=== PATIENT | female | born 1980 | race Caucasian/White ===

== ENCOUNTER 2018-07-19 12:55 | Emergency (ER) | payer MEDICAID, OTHER ==
[2018-07-19 12:55] VITALS: BMI 25.2
--- NOTE | 2018-07-19 13:26 | ED PDOC ---
Arrival/HPI - General Chief Complaint: Dizziness/Lightheaded Time Seen by Provider: 07/19/18 13:00 Historian: Patient - History of Present Illness Narrative History of Present Illness (Text): 07/19/18 13:43 37 year old female, with no significant past medical history, presents to the emergency department complaining of dizziness for the past 5 days. Patient states she intermittently feels like the room is spinning and her eye sight goes black. She notes secondary loss of appetite and sometimes experiences palpitations. LNMP was approximately 20 days ago. Patient denies fevers, chills, headache, chest pain, shortness of breath, dyspnea on exertion, cough, abdominal pain, nausea, vomiting, diarrhea, back pain, neck pain, or any other complaint. Time/Duration: < week Symptom Onset: Gradual Symptom Course: Unchanged Activities at Onset: Light Context: Home Past Medical History - Provider Review Nursing Documentation Reviewed: Yes - Past Medical History Past Medical History: Non-Contributing - Psychiatric Hx Substance Use: No - Past Surgical History Past Surgical History: No Previous - Surgical History Hx Section: Yes - Anesthesia Hx Anesthesia: Yes Hx Anesthesia Reactions: No Hx Malignant Hyperthermia: No - Suicidal Assessment Feels Threatened In Home Enviroment: No Family/Social History - Physician Review Nursing Documentation Reviewed: Yes Family/Social History: No Known Family HX Smoking Status: Never Smoked Hx Alcohol Use: Yes Frequency of alcohol use: Socially Hx Substance Use: No Allergies/Home Meds Allergies/Adverse Reactions: Allergies No Known Allergies Allergy (Verified 07/06/14 01:45) Review of Systems - Physician Review All systems were reviewed & negative as marked: Yes - Review of Systems Constitutional: absent: Fevers Respiratory: absent: SOB, Cough Cardiovascular: absent: Chest Pain Gastrointestinal: Appetite Changes (loss of appetite). absent: Abdominal Pain, Diarrhea, Nausea Musculoskeletal: absent: Back Pain, Neck Pain Skin: absent: Rash Neurological: Dizziness. absent: Headache Physical Exam Vital Signs Reviewed: Yes Vital Signs Temp Pulse Resp BP Pulse Ox 07/19/18 12:55 98.2 F 118 H 18 142/86 98 Temperature: Afebrile Blood Pressure: Normal Pulse: Tachycardic Respiratory Rate: Normal Appearance: Positive for: Well-Appearing, Non-Toxic, Comfortable Pain Distress: None Mental Status: Positive for: Alert and Oriented X 3 - Systems Exam Head: Present: Atraumatic, Normocephalic Pupils: Present: PERRL Extroacular Muscles: Present: EOMI Conjunctiva: Present: Normal Mouth: Present: Moist Mucous Membranes Neck: Present: Normal Range of Motion Respiratory/Chest: Present: Clear to Auscultation, Good Air Exchange. No: Respiratory Distress, Accessory Muscle Use Cardiovascular: Present: Regular Rate and Rhythm, Normal S1, S2. No: Murmurs Abdomen: Present: Other (abdomen soft). No: Tenderness, Distention, Peritoneal Signs Back: Present: Normal Inspection Upper Extremity: Present: Normal Inspection. No: Cyanosis, Edema Lower Extremity: Present: Normal Inspection. No: Edema Neurological: Present: GCS=15, CN II-XII Intact, Speech Normal, Motor Func Grossly Intact (motor strength 5/5 in upper and lower extremities ), Other (horizontal nystagmus noted) Skin: Present: Warm, Dry, Normal Color. No: Rashes Psychiatric: Present: Alert, Oriented x 3, Normal Insight, Normal Concentration Medical Decision Making ED Course and Treatment: 07/19/18 13:42 Impression: 37 year old female who presents to the emergency department complaining of dizziness. Differential Diagnosis included but are not limited to: Plan: -- EKG -- Labs -- Antivert -- Reglan -- POC urine test -- Urinalysis -- Reassess and disposition Prior Visits: Notes and results from previous visits were reviewed. Progress Notes: - Lab Interpretations I have reviewed the lab results: Yes - EKG Interpretation EKG Interpretation (Text): 07/19/18 13:52 EKG reviewed by me, shows: Sinus tachycardia at 101 bpm with no QT prolongation and no T wave inversions. Interpreted by ED Physician: Yes Type: 12 lead EKG - Scribe Statement The provider has reviewed the documentation as recorded by the Cindy Elizondo Provider Scribe Attestation: All medical record entries made by the Scribe were at my direction and personal ly dictated by me. I have reviewed the chart and agree that the record accurately reflects my personal performance of the history, physical exam, medical decision making, and the department course for this patient. I have also personally directed, reviewed, and agree with the discharge instructions and disposition. Disposition/Present on Arrival - Present on Arrival Any Indicators Present on Arrival: No History of DVT/PE: No History of Uncontrolled Diabetes: No Urinary Catheter: No History of Decub. Ulcer: No History Surgical Site Infection Following: None - Disposition Have Diagnosis and Disposition been Completed?: Yes Diagnosis: Vertigo Disposition Time: 15:59 Patient Plan: Discharge Patient Problems: Current Active Problems Problem Status Onset Vertigo Acute Condition: STABLE Discharge Instructions (ExitCare): Vertigo (a Type of Dizziness) (DC), Dizziness, Nonvertigo, (DC) Print Language: YI Additional Instructions: All medical record entries made by the Scribe were at my direction and personally dictated by me. I have reviewed the chart and agree that the record accurately reflects my personal performance of the history, physical exam, medical decision making, and the department course for this patient. I have also personally directed, reviewed, and agree with the discharge instructions and disposition. Please monitor your symptoms for any changes in symptoms Prescriptions: Meclizine [Antivert] 12.5 mg PO PRN PRN #10 tab PRN Reason: Dizziness Metoclopramide HCl [Reglan] 10 mg PO Q6H #12 tablet Forms: [employer] ([place]), WORK NOTE
[2018-07-19 14:15] LABS: PH,URINE 7.5 (4.7-8.0); URINE APPEARANCE CLEAR (CLEAR); URINE BILIRUBIN NEGATIVE (NEGATIVE); URINE BLOOD NEGATIVE (NEGATIVE); URINE COLOR YELLOW (YELLOW); URINE GLUCOSE (UA) NEGATIVE (NEGATIVE); URINE LEUKOCYTE ESTERASE NEGATIVE Leu/uL (NEGATIVE); URINE PROTEIN NEGATIVE mg/dL (<30 mg/dL); URINE UROBILINOGEN 0.2 E.U./dL (<1 E.U./dL)
[2018-07-19 14:30] LABS: BASO # 0.03 K/mm3 (0.0-2.0); BASO % 0.3 % (0.0-3.0); EOS % 0.2 % (1.5-5.0); HEMOGLOBIN 13.4 g/dL (12.0-16.0); LYMPH # 1.4 (1.2-3.4); MEAN CELL VOLUME 90.2 fl (80.0-105.0); MEAN CORPUSCULAR HEMOGLOBIN 29.3 pg (25.0-35.0); MEAN CORPUSCULAR HGB CONC 32.4 g/dl (31.0-37.0); MEAN PLATELET VOLUME 10.1 fl (7.0-11.0); MONO # 0.6 (0.1-0.6); MONO % 6.8 % (1.0-6.0); RBC 4.58 10^6/uL (3.5-6.1); RED CELL DISTRIBUTION WIDTH 13.6 % (11.5-14.5); WHITE BLOOD COUNT 8.9 10^3/uL (4.5-11.0)
[2018-07-19 14:59] LABS: ALB/GLOB RATIO 1.3 (1.1-1.8); ALBUMIN 4.9 g/dL (3.0-4.8); ALT/SGPT 44 U/L (7-56); AST/SGOT 39 U/L (14-36); BLOOD UREA NITROGEN 9 mg/dL (7-21); CALCIUM 9.9 mg/dL (8.4-10.5); GFR NON-AFRICAN AMERICAN > 60
[2018-07-19] MEDS ORDERED: Sodium Chloride 0.9% 1,000 ML IV STA (15:19)
--- NOTE | 2018-07-19 16:23 | CARD ---
APPROVED REPORT Date of service: 07/19/2018 EKG Measurement Heart [id number] <Conclusion> Sinus tachycardia Otherwise normal ECG
[2018-07-19 17:23] VITALS: BP 117/80; PULSE 81; RESP 19; TEMP 98.1; O2SAT 100
== END 2018-07-19 17:29 | disposition home or self-care (01) ==
LOC: ED 12:55 → MERGE 12:55 → ED 17:29
DX: R42 Dizziness and giddiness (principal)
CPT/HCPCS: 80053; 81003; 81025; 85025; 93005; 96360; 99285; J7030

== ENCOUNTER 2018-07-22 08:59 | Inpatient (IN) | payer MEDICAID ==
[2018-07-22] MEDS ORDERED: Sodium Chloride 0.9% 1,000 ML IV STA (09:39)
--- NOTE | 2018-07-22 09:44 | ED PDOC ---
Arrival/HPI - General Chief Complaint: Weakness/Neurological Deficit Historian: Patient - History of Present Illness Narrative History of Present Illness (Text): 07/22/18 09:41 38 year old female, no significant, pmh, nkda, complaining of feeling fatigue /dizziness with exertion of activity. Pt. stated that she was seen here about 5 days ago, diagnosed with vertigo, discharge home with meclizine with limited relief, scheduled to see pmd Dr. Emmanuelle Lima tomorrow. pt. stated that she is here because the symptoms persist and concern plus panic, arrived in the ER with tachycardia around 105s resting with negative orthostatic bp reading, no recent long distance traveling but she is on the control medication, no extremity swelling or ecchymosis, no numbness or tingling, no other medical or psychological complaints. Past Medical History - Provider Review Nursing Documentation Reviewed: Yes - Reproductive Currently : No - Past Medical History Past Medical History: Non-Contributing - Psychiatric Hx Substance Use: No - Past Surgical History Past Surgical History: No Previous - Surgical History Hx Section: Yes - Anesthesia Hx Anesthesia: Yes Hx Anesthesia Reactions: No Hx Malignant Hyperthermia: No - Suicidal Assessment Feels Threatened In Home Enviroment: No Family/Social History - Physician Review Nursing Documentation Reviewed: Yes Family/Social History: Unknown Family HX Smoking Status: Never Smoked Hx Alcohol Use: Yes Hx Substance Use: No Allergies/Home Meds Allergies/Adverse Reactions: Allergies No Known Allergies Allergy (Verified 07/06/14 01:45) Home Medications: Home Meds Medication Instructions Recorded Confirmed Control Pill 1 tab PO DAILY 07/22/18 Review of Systems - Review of Systems Constitutional: Fatigue. absent: Fevers Eyes: absent: Vision Changes ENT: absent: Hearing Changes Respiratory: absent: SOB, Cough Cardiovascular: absent: Chest Pain Gastrointestinal: absent: Abdominal Pain, Nausea, Vomiting Skin: absent: Rash, Pruritis Neurological: Dizziness. absent: Headache, Focal Weakness, Gait Changes, Speech Changes, Facial Droop, Disequilibrium, Seizure Endocrine: absent: Diaphoresis Hemo/Lymphatic: absent: Adenopathy Psychiatric: absent: Depression, Suicidal Ideation Physical Exam Vital Signs Reviewed: Yes Vital Signs Temp Pulse Resp BP Pulse Ox 07/22/18 09:00 98.4 F 108 H 18 132/85 100 Temperature: Afebrile Blood Pressure: Normal Pulse: Tachycardic Respiratory Rate: Normal Appearance: Positive for: Well-Appearing, Non-Toxic, Comfortable Pain Distress: None Mental Status: Positive for: Alert and Oriented X 3 - Systems Exam Head: Present: Atraumatic, Normocephalic. No: Tenderness, Contusion, Swelling, Ecchymosis, Abrasion, Laceration, Other Pupils: Present: PERRL Extroacular Muscles: Present: EOMI Conjunctiva: Present: Normal Mouth: Present: Moist Mucous Membranes Pharnyx: Present: Normal. No: ERYTHEMA, EXUDATE, TONSILS ENLARGED, Uvular Deviation, Muffled/Hoarse Voice, Soft Palate/Uvular Edema Nose (External): Present: Atraumatic. No: Abrasion, Contusion, Laceration Nose (Internal): Present: Normal Inspection, No Active Bleeding. No: Rhinorrhea, Septal Hematoma, Epistaxis Neck: Present: Normal Range of Motion Respiratory/Chest: Present: Clear to Auscultation, Good Air Exchange. No: Respiratory Distress, Accessory Muscle Use Cardiovascular: Present: Regular Rate and Rhythm, Normal S1, S2. No: Murmurs Abdomen: No: Tenderness, Distention, Peritoneal Signs, Rebound, Guarding Back: Present: Normal Inspection. No: CVA Tenderness, Midline Tenderness, Paraspinal Tenderness Upper Extremity: Present: Normal Inspection, Normal ROM, NORMAL PULSES, Neurovascularly Intact, Capillary Refill < 2s. No: Cyanosis, Edema, Tenderness, Swelling, Erythema, Deformity Lower Extremity: Present: Normal Inspection, NORMAL PULSES, Normal ROM, Neurovascularly Intact, Capillary Refill < 2 s. No: Edema, CALF TENDERNESS, Rodriguez's Sign, Tenderness, Swelling, Deformity, Temperature Abnormalties Neurological: Present: GCS=15, CN II-XII Intact, Speech Normal, Motor Func Grossly Intact, Normal Cerebellar Funct, Gait Normal, Memory Normal, Other (normal finger to nose test, normal heel to linda test, bilateral upper and lower extremities motor 5/5. ) Skin: Present: Warm, Dry, Normal Color. No: Rashes Lymphatic: No: Cervical Adenopathy Psychiatric: Present: Alert, Oriented x 3, Normal Insight, Normal Concentration Medical Decision Making ED Course and Treatment: 07/22/18 09:44 -labs -ekg -cxr -IVF -cardiac nurse 07/22/18 11:05 -Dimer 1336, CT ordered 07/22/18 12:08 -Urine hcg is negative -Orthostatic v/s: negative -CT head show No acute intracranial hemorrhage. -CTA Chest There is evidence of pulmonary emboli within the distal left lower lobe pulmonary artery, proximal segmental and possibly additional subsegmental left lower lobe branch. Questionable pulmonary embolus within a distal segmental branch right upper lobe -Chest xray ER wet read: no active disease -EKG: NSR @ 98 BPM, no ST elevation or depression, no T wave inversion -Labs are non-significant -BNP within normal limit -Trop within normal limit. -Urinalysis show no UTI -Pt. refused guaiac exam, stated that she has no rectal bleeding, no black color stool, no abdominal pain. -IV PT/PTT and heparin ordered. -Paging hospitalist for admission. 07/22/18 12:52 -I spoke to Dr. Sarmiento, discussed about the case/labs/radiology result, agreed to admit to his service. - RAD Interpretation Radiology Orders: 07/22/18 09:39 CHEST PORTABLE [RAD] Stat CT head: Date of service: 07/22/2018 PROCEDURE: CT HEAD WITHOUT CONTRAST. HISTORY: dizziness COMPARISON: Wet the the the TECHNIQUE: Axial computed tomography images were obtained through the head/brain without intravenous contrast. Radiation dose: Total exam DLP = 685.6 mGy-cm. This CT exam was performed using one or more of the following dose reduction techniques: Automated exposure control, adjustment of the mA and/or kV according to patient size, and/or use of iterative reconstruction technique. FINDINGS: HEMORRHAGE: No intracranial hemorrhage. BRAIN: No mass effect or edema. No atrophy or chronic microvascular ischemic changes. VENTRICLES: Unremarkable. No hydrocephalus. CALVARIUM: Unremarkable. PARANASAL SINUSES: Unremarkable as visualized. No significant inflammatory changes. MASTOID AIR CELLS: Unremarkable as visualized. No inflammatory changes. OTHER FINDINGS: None. IMPRESSION: No acute intracranial hemorrhage. CTA chest: FINDINGS: PULMONARY ARTERIES: There are filling defects seen within the distal of lower lobe pulmonary artery extending into at least 2 segmental branches and probably 1 or 2 subsegmental branches of the lower lobe of pulmonary arteries. Questionable filling defect within a distal right upper lobe segmental pulmonary artery branch. Pulmonary trunk measures approximately 2.6 cm; rule out underlying minimal pulmonary arterial hypertension.. AORTA: No acute findings. No thoracic aortic aneurysm. Ascending thoracic aorta measures approximately 2.5 cm. The no aortic atherosclerotic calcification or mural plaque present. LUNGS: Unremarkable. No nodule, mass or pulmonary consolidation. PLEURAL SPACES: Unremarkable. No effusion or pneumothorax. HEART: Heart size is borderline enlarged. No significant pericardial effusion. LYMPH NODES: No significant mediastinal or hilar adenopathy. Small hiatal hernia Trachea midline and patent with no large central endoluminal lesions. BONES, CHEST WALL: Unremarkable. No fracture or destructive lesion OTHER FINDINGS: Unremarkable. IMPRESSION: There is evidence of pulmonary emboli within the distal left lower lobe pulmonary artery, proximal segmental and possibly additional subsegmental left lower lobe branch. Questionable pulmonary embolus within a distal segmental branch right upper lobe The the Note that these findings were discussed with the LJ Padilla at approximately 11:48 a.m. with written down and read back verification. Chest xray: Date of service: 07/22/2018 HISTORY: fatigue, dizziness COMPARISON: No prior. FINDINGS: LUNGS: No active pulmonary disease. PLEURA: No significant pleural effusion identified, no pneumothorax apparent. CARDIOVASCULAR: No aortic atherosclerotic calcification present. Normal cardiac size. No pulmonary vascular congestion. OSSEOUS STRUCTURES: No significant abnormalities. VISUALIZED UPPER ABDOMEN: Normal. OTHER FINDINGS: None. IMPRESSION: No active disease. 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 Disposition/Present on Arrival - Present on Arrival Any Indicators Present on Arrival: No History of DVT/PE: No History of Uncontrolled Diabetes: No Urinary Catheter: No History of Decub. Ulcer: No History Surgical Site Infection Following: None - Disposition Have Diagnosis and Disposition been Completed?: Yes Diagnosis: Pulmonary embolism Disposition: HOSPITALIZED Disposition Time: 12:10 Patient Plan: Admission, Telemetry Patient Problems: Current Active Problems Problem Status Onset Pulmonary embolism Acute Condition: GUARDED
[2018-07-22 10:05] LABS: BASO # 0.02 K/mm3 (0.0-2.0); BASO % 0.4 % (0.0-3.0); EOS # 0.1 (0.0-0.7); EOS % 1.2 % (1.5-5.0); HEMOGLOBIN 12.8 g/dL (12.0-16.0); LYMPH # 1.1 (1.2-3.4); LYMPH % 23.2 % (22.0-35.0); MEAN CELL VOLUME 91.3 fl (80.0-105.0); MEAN CORPUSCULAR HEMOGLOBIN 29.2 pg (25.0-35.0); MONO # 0.5 (0.1-0.6); MONO % 9.3 % (1.0-6.0); RBC 4.38 10^6/uL (3.5-6.1); RED CELL DISTRIBUTION WIDTH 13.6 % (11.5-14.5); WHITE BLOOD COUNT 4.9 10^3/uL (4.5-11.0)
[2018-07-22 10:20] LABS: ALB/GLOB RATIO 1.3 (1.1-1.8); ALBUMIN 4.4 g/dL (3.0-4.8); ALT/SGPT 24 U/L (7-56); AST/SGOT 26 U/L (14-36); BLOOD UREA NITROGEN 8 mg/dL (7-21); CALCIUM 9.4 mg/dL (8.4-10.5); GFR NON-AFRICAN AMERICAN > 60
[2018-07-22 10:26] LABS: B-TYPE NATRIURETIC PEPTIDE 33.7 pg/mL (0-450); TROPONIN I < 0.01 ng/mL
[2018-07-22 10:30] LABS: FREE T4 0.97 ng/dL (0.78-2.19)
[2018-07-22 10:44] LABS: PH,URINE 6.5 (4.7-8.0); URINE APPEARANCE CLEAR (CLEAR); URINE BILIRUBIN NEGATIVE (NEGATIVE); URINE BLOOD NEGATIVE (NEGATIVE); URINE COLOR YELLOW (YELLOW); URINE GLUCOSE (UA) NEGATIVE (NEGATIVE); URINE LEUKOCYTE ESTERASE NEGATIVE Leu/uL (NEGATIVE); URINE PROTEIN NEGATIVE mg/dL (<30 mg/dL); URINE UROBILINOGEN 0.2 E.U./dL (<1 E.U./dL)
--- NOTE | 2018-07-22 11:10 | CARD ---
APPROVED REPORT Date of service: 07/22/2018 EKG Measurement Heart [id number] <Conclusion> Normal sinus rhythm Normal ECG
--- NOTE | 2018-07-22 11:34 | CT ---
Date of service: 07/22/2018 PROCEDURE: CT HEAD WITHOUT CONTRAST. HISTORY: dizziness COMPARISON: Wet the the the TECHNIQUE: Axial computed tomography images were obtained through the head/brain without intravenous contrast. Radiation dose: Total exam DLP = 685.6 mGy-cm. This CT exam was performed using one or more of the following dose reduction techniques: Automated exposure control, adjustment of the mA and/or kV according to patient size, and/or use of iterative reconstruction technique. FINDINGS: HEMORRHAGE: No intracranial hemorrhage. BRAIN: No mass effect or edema. No atrophy or chronic microvascular ischemic changes. VENTRICLES: Unremarkable. No hydrocephalus. CALVARIUM: Unremarkable. PARANASAL SINUSES: Unremarkable as visualized. No significant inflammatory changes. MASTOID AIR CELLS: Unremarkable as visualized. No inflammatory changes. OTHER FINDINGS: None. IMPRESSION: No acute intracranial hemorrhage.
[2018-07-22 11:55] VITALS: BMI 25.0
--- NOTE | 2018-07-22 11:59 | CT ---
Date of service: 07/22/2018 PROCEDURE: CT Chest with contrast (Pulmonary Angiogram) HISTORY: Tachycardia COMPARISON: None available. TECHNIQUE: Axial computed tomography images were obtained of the chest in the pulmonary arterial phase of enhancement. Coronal and sagittal reformatted images were created and reviewed. Intravenous contrast dose: 146 cc Omnipaque 350 Radiation dose: Total exam DLP = 309.92 mGy-cm. This CT exam was performed using one or more of the following dose reduction techniques: Automated exposure control, adjustment of the mA and/or kV according to patient size, and/or use of iterative reconstruction technique. FINDINGS: PULMONARY ARTERIES: There are filling defects seen within the distal of lower lobe pulmonary artery extending into at least 2 segmental branches and probably 1 or 2 subsegmental branches of the lower lobe of pulmonary arteries. Questionable filling defect within a distal right upper lobe segmental pulmonary artery branch. Pulmonary trunk measures approximately 2.6 cm; rule out underlying minimal pulmonary arterial hypertension.. AORTA: No acute findings. No thoracic aortic aneurysm. Ascending thoracic aorta measures approximately 2.5 cm. The no aortic atherosclerotic calcification or mural plaque present. LUNGS: Unremarkable. No nodule, mass or pulmonary consolidation. PLEURAL SPACES: Unremarkable. No effusion or pneumothorax. HEART: Heart size is borderline enlarged. No significant pericardial effusion. LYMPH NODES: No significant mediastinal or hilar adenopathy. Small hiatal hernia Trachea midline and patent with no large central endoluminal lesions. BONES, CHEST WALL: Unremarkable. No fracture or destructive lesion OTHER FINDINGS: Unremarkable. IMPRESSION: There is evidence of pulmonary emboli within the distal left lower lobe pulmonary artery, proximal segmental and possibly additional subsegmental left lower lobe branch. Questionable pulmonary embolus within a distal segmental branch right upper lobe The the Note that these findings were discussed with the LJ Padilla at approximately 11:48 a.m. with written down and read back verification.
[2018-07-22 12:12] LABS: INR 1.06; PARTIAL THROMBOPLASTIN TIME 31.2 Seconds (26.9-38.3)
[2018-07-22] MEDS: Heparin25000 units/250ml 1/2NS 25,000 UNITS/250 ML BAG IV PRN (12:32)
--- NOTE | 2018-07-22 12:57 | RAD ---
Date of service: 07/22/2018 HISTORY: fatigue, dizziness COMPARISON: No prior. FINDINGS: LUNGS: No active pulmonary disease. PLEURA: No significant pleural effusion identified, no pneumothorax apparent. CARDIOVASCULAR: No aortic atherosclerotic calcification present. Normal cardiac size. No pulmonary vascular congestion. OSSEOUS STRUCTURES: No significant abnormalities. VISUALIZED UPPER ABDOMEN: Normal. OTHER FINDINGS: None. IMPRESSION: No active disease.
--- NOTE | 2018-07-22 13:47 | CP.PCM.HP ---
<JoseAntno Leland - Last Filed: 07/22/18 15:01> History of Present Illness - History of Present Illness History of Present Illness: Anton Garcia PGY1, History and Physical for Dr Priyanka Ferguson Pt is a 38yo female with no significant PMH presents to the emergency department complaining of generalized weakness, and hunger which started last Monday. She states she has not eaten all day, last time she ate was last night. Pt states she presented [place] [facility] [place] for similiar symptoms. Pt states she has been taking OCP for the past 5 years. She denies a personal or family history of coagulation problems. Pt reports some mild associated SOB with the weakness. She denies chest pain, nausea, vomiting, headache. A 12 point ROS was obtained and added to the HPI where appropriate. PMH: denies PSH: x2 FH: mother no medical problems, father no medical problems SH: denies tobacco, occasional alcohol, denies illicit drugs Home meds: OCP Allergies: denies PMD: Dr Lima Present on Admission - Present on Admission Any Indicators Present on Admission: No Past Patient History - Past Social History Smoking Status: Never Smoked - PSYCHIATRIC Hx Substance Use: No - SURGICAL HISTORY Hx Section: Yes - ANESTHESIA Hx Anesthesia: Yes Hx Anesthesia Reactions: No Hx Malignant Hyperthermia: No Meds Allergies/Adverse Reactions: Allergies Allergy/AdvReac Type Severity Reaction Status Date / Time No Known Allergies Allergy Verified 07/06/14 01:45 Physical Exam - Head Exam Head Exam: ATRAUMATIC, NORMOCEPHALIC - Eye Exam Eye Exam: EOMI - ENT Exam ENT Exam: Mucous Membranes Moist - Neck Exam Neck exam: Positive for: Full Rom - Respiratory Exam Respiratory Exam: Clear to Auscultation Bilateral, NORMAL BREATHING PATTERN. absent: Accessory Muscle Use, Respiratory Distress - Cardiovascular Exam Cardiovascular Exam: RRR, +S1, +S2. absent: Diastolic murmur, Systolic Murmur - GI/Abdominal Exam GI & Abdominal Exam: Normal Bowel Sounds, Soft - Extremities Exam Extremities exam: Positive for: full ROM, normal inspection, pedal pulses present. Negative for: calf tenderness, pedal edema, tenderness - Neurological Exam Neurological exam: Alert, Oriented x3 - Psychiatric Exam Psychiatric exam: Normal Affect, Normal Mood - Skin Skin Exam: Dry, Intact, Warm Results - Vital Signs Recent Vital Signs: Last Vital Signs Temp 98.4 F 07/22/18 09:44 Pulse 93 H 07/22/18 11:59 Resp 18 07/22/18 11:59 BP 121/72 07/22/18 11:59 Pulse Ox 99 07/22/18 11:59 - Labs Result Diagrams: 07/22/18 09:55 07/22/18 09:55 Labs: Laboratory Results - last 24 hr 07/22/18 07/22/18 07/22/18 09:55 09:55 09:55 WBC 4.9 D RBC 4.38 Hgb 12.8 Hct 40.0 MCV 91.3 MCH 29.2 MCHC 32.0 RDW 13.6 Plt Count 289 MPV 10.0 Neut % (Auto) 65.9 Lymph % (Auto) 23.2 Pratt % (Auto) 9.3 H Eos % (Auto) 1.2 L Baso % (Auto) 0.4 Lymph # (Auto) 1.1 L Pratt # (Auto) 0.5 Eos # (Auto) 0.1 Baso # (Auto) 0.02 Absolute Neuts (auto) 3.24 PT INR APTT D-Dimer, Quantitative 1336 H Sodium 139 Potassium 4.1 Chloride 106 Carbon Dioxide 25 Anion Gap 13 BUN 8 Creatinine 0.6 L Est GFR ( Amer) > 60 Est GFR (Non-Af Amer) > 60 Random Glucose 102 Calcium 9.4 Magnesium 2.1 Total Bilirubin 0.3 AST 26 ALT 24 Alkaline Phosphatase 59 Total Creatine Kinase 26 L Troponin I < 0.01 NT-Pro-B Natriuret Pep 33.7 Total Protein 8.0 Albumin 4.4 Globulin 3.5 Albumin/Globulin Ratio 1.3 Free T4 TSH 3rd Generation Urine Color Urine Appearance Urine pH Ur Specific [place] Urine Protein Urine Glucose (UA) Urine Ketones Urine Blood Urine Nitrate Urine Bilirubin Urine Urobilinogen Ur Leukocyte Esterase 07/22/18 07/22/18 07/22/18 09:55 10:30 11:55 WBC RBC Hgb Hct MCV MCH MCHC RDW Plt Count MPV Neut % (Auto) Lymph % (Auto) Pratt % (Auto) Eos % (Auto) Baso % (Auto) Lymph # (Auto) Pratt # (Auto) Eos # (Auto) Baso # (Auto) Absolute Neuts (auto) PT 12.0 INR 1.06 APTT 31.2 D-Dimer, Quantitative Sodium Potassium Chloride Carbon Dioxide Anion Gap BUN Creatinine Est GFR ( Amer) Est GFR (Non-Af Amer) Random Glucose Calcium Magnesium Total Bilirubin AST ALT Alkaline Phosphatase Total Creatine Kinase Troponin I NT-Pro-B Natriuret Pep Total Protein Albumin Globulin Albumin/Globulin Ratio Free T4 0.97 TSH 3rd Generation 1.24 Urine Color Yellow Urine Appearance Clear Urine pH 6.5 Ur Specific [place] <= 1.005 Urine Protein Negative Urine Glucose (UA) Negative Urine Ketones Negative Urine Blood Negative Urine Nitrate Negative Urine Bilirubin Negative Urine Urobilinogen 0.2 Ur Leukocyte Esterase Negative Assessment & Plan - Assessment and Plan (Free Text) Assessment: Pt is a 38yo female with no significant PMH presents to the emergency department complaining of generalized weakness, and hunger which started last Monday. She states she has not eaten all day, last time she ate was last night. Pt states she presented [place] [facility] [place] for similiar symptoms. Plan: Provoked Pulmonary Embolism - therapeutic heparin drip - coag studies, follow up - CXR shows no active disease - Head CT: no acute intracranial abnormality - Chest CT: evidence of pulmonary emboli within the distal left lower lobe pulmonary artery, proximal segment and possibly additional subsegmental left lower lobe branch. - LE duplex up - ECHO follow up - pt counseled to stop taking OCP, as this may have increased her risk of having a pulmonary embolism - pt advised to follow up with a clinical safety specialist as an out pt Ppx, diet - regular diet Pt seen, examined, assessment and plan discussed with Dr Priyanka Garcia PGY1 - Date & Time Date: 07/22/18 Time: 13:52 <Priyanka Ferguson R - Last Filed: 07/22/18 16:02> Results - Vital Signs Recent Vital Signs: Last Vital Signs Temp 98.4 F 07/22/18 09:44 Pulse 90 07/22/18 15:02 Resp 18 07/22/18 15:02 BP 118/69 07/22/18 15:02 Pulse Ox 99 07/22/18 15:02 - Labs Result Diagrams: 07/22/18 09:55 07/22/18 09:55 Labs: Laboratory Results - last 24 hr 02/03/19 02/03/19 02/03/19 09:55 09:55 09:55 WBC 4.9 D RBC 4.38 Hgb 12.8 Hct 40.0 MCV 91.3 MCH 29.2 MCHC 32.0 RDW 13.6 Plt Count 289 MPV 10.0 Neut % (Auto) 65.9 Lymph % (Auto) 23.2 Pratt % (Auto) 9.3 H Eos % (Auto) 1.2 L Baso % (Auto) 0.4 Lymph # (Auto) 1.1 L Pratt # (Auto) 0.5 Eos # (Auto) 0.1 Baso # (Auto) 0.02 Absolute Neuts (auto) 3.24 PT INR APTT D-Dimer, Quantitative 1336 H Sodium 139 Potassium 4.1 Chloride 106 Carbon Dioxide 25 Anion Gap 13 BUN 8 Creatinine 0.6 L Est GFR ( Amer) > 60 Est GFR (Non-Af Amer) > 60 Random Glucose 102 Calcium 9.4 Magnesium 2.1 Total Bilirubin 0.3 AST 26 ALT 24 Alkaline Phosphatase 59 Total Creatine Kinase 26 L Troponin I < 0.01 NT-Pro-B Natriuret Pep 33.7 Total Protein 8.0 Albumin 4.4 Globulin 3.5 Albumin/Globulin Ratio 1.3 Free T4 TSH 3rd Generation Urine Color Urine Appearance Urine pH Ur Specific [place] Urine Protein Urine Glucose (UA) Urine Ketones Urine Blood Urine Nitrate Urine Bilirubin Urine Urobilinogen Ur Leukocyte Esterase 07/22/18 07/22/18 07/22/18 09:55 10:30 11:55 WBC RBC Hgb Hct MCV MCH MCHC RDW Plt Count MPV Neut % (Auto) Lymph % (Auto) Pratt % (Auto) Eos % (Auto) Baso % (Auto) Lymph # (Auto) Pratt # (Auto) Eos # (Auto) Baso # (Auto) Absolute Neuts (auto) PT 12.0 INR 1.06 APTT 31.2 D-Dimer, Quantitative Sodium Potassium Chloride Carbon Dioxide Anion Gap BUN Creatinine Est GFR ( Amer) Est GFR (Non-Af Amer) Random Glucose Calcium Magnesium Total Bilirubin AST ALT Alkaline Phosphatase Total Creatine Kinase Troponin I NT-Pro-B Natriuret Pep Total Protein Albumin Globulin Albumin/Globulin Ratio Free T4 0.97 TSH 3rd Generation 1.24 Urine Color Yellow Urine Appearance Clear Urine pH 6.5 Ur Specific [place] <= 1.005 Urine Protein Negative Urine Glucose (UA) Negative Urine Ketones Negative Urine Blood Negative Urine Nitrate Negative Urine Bilirubin Negative Urine Urobilinogen 0.2 Ur Leukocyte Esterase Negative Attending/Attestation - Attestation I have personally seen and examined this patient.: Yes I have fully participated in the care of the patient.: Yes I have reviewed all pertinent clinical information: Yes Notes (Text): Patient seen and examined by me with resident at 1:15PM on 07/22/18. Case i ncluding HPI, physical exam, and assessment and plan discussed with resident. Agree with above with following additions/corrections. CC: Weakness and dizziness. Patient is a 38-year-old female with no significant past medical history that presented to the emergency room complaining of generalized weakness and dizziness. Patient states that she has been experiencing these symptoms since 07/14/2018. She presented to emergency room on 07/19/2018 and states that she left without a diagnosis. Patient states that she also has a little shortness of breath with walking. Patient denies any recent travel. 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 Patient states that she has been taking control pills for approximately 5 years now. She denies any chest pain or palpitations. No nausea, vomiting, or abdominal pain. No fevers or chills. No dysuria. No diarrhea or constipation. No neck or back pain. No headaches or lightheadedness. Patient denies any leg or calf pain. 12 point review of systems reviewed by me. Please see above HPI. All other systems negative. Family history: Mother is alive and healthy. Father is alive and healthy. Physical exam: General: Awake and alert lying in bed in no acute distress HEENT: Normocephalic, atraumatic. Extraocular muscles intact, pupils equal and reactive, no scleral icterus. Oropharynx is pink and moist. No pharyngeal erythema or exudate apreciated. Neck is supple. Hearing grossly intact. Ears and nose externally unremarkable. Cardiovascular: Regular rhythm. Normal S1 and S2. No murmurs, rubs, or gallops appreciated Pulmonary: Normal respiratory effort. No rhonchi, rales, or wheezing appreciated. Gastrointestinal: Soft, nondistended. Nontender. Positive bowel sounds all 4 quadrants. No guarding. Musculoskeletal: Moves all extremities. No calf tenderness. No edema. Central nervous system: AAOx3, CN 2-12 grossly intact. 5/5 muscle strength all extremities. Dermatologic: Skin warm and dry. Assessment and plan: Patient is a 38-year-old female with no significant past medical history that presented to the emergency room complaining of generalized weakness and dizziness. 1. Pulmonary emboli. Likely secondary to oral contraceptive pill use. Patient advised to stop using her OCPs. CTA chest per radiologist showed evidence of pulmonary emboli within the distal left lower lobe pulmonary artery, proximal segmental and possibly additional subsegmental left lower lobe branch, questionable pulmonary embolism within the distal segmental branch right upper lobe. Started on heparin drip. Risks including increased risk of bleeding discussed at length with patient. Patient understands the risks of blood thinners and agrees to take them. Patient understands that if she plans to be in the future, she will need to speak to her physician prior as she is on blood thinners. Bilateral lower extremity venous Dopplers ordered. 2-D echo ordered. Monitor on telemetry. 2. Dizziness and weakness. Likely secondary to pulmonary emboli. Head CT per radiologist showed no intracranial hemorrhage. Continue to monitor for now. 3. DVT prophylaxis. Heparin Case discussed in detail with patient and patient's at bedside with poultry barn manager. All questions answered.
[2018-07-22] MEDS ORDERED: Liquid Adhesive TOP ONE (15:11)
[2018-07-22] MEDS ORDERED: Bupivacaine 0.5% 50 ML IJ ONE (16:54)
--- NOTE | 2018-07-22 18:07 | US ---
HISTORY: Leg pain and swelling. Evaluate for DVT PHYSICIAN(S): Audi Head MD. TECHNIQUE: Duplex sonography and color-flow Doppler with graded compression were used to evaluate the deep venous systems of both lower extremities. FINDINGS: The visualized deep venous systems of both lower extremities are sonographically normal and compressible. Normal wave forms and augmentation are seen. There is no sonographic evidence for deep venous thrombosis in the visualized segments of both lower extremities. IMPRESSION: No sonographic evidence for deep venous thrombosis in the visualized segments of both lower extremities.
[2018-07-22 19:43] LABS: INR 1.17
[2018-07-22 19:47] LABS: PARTIAL THROMBOPLASTIN TIME 201.5 Seconds (26.9-38.3)
[2018-07-23] MEDS: Heparin25000 units/250ml 1/2NS 25,000 UNITS/250 ML BAG IV PRN ×2 (03:05→11:45)
[2018-07-23 06:46] LABS: BASO # 0.07 K/mm3 (0.0-2.0); BASO % 1.3 % (0.0-3.0); EOS # 0.1 (0.0-0.7); EOS % 2.4 % (1.5-5.0); HEMOGLOBIN 12.6 g/dL (12.0-16.0); LYMPH # 2.3 (1.2-3.4); LYMPH % 41.3 % (22.0-35.0); MEAN CELL VOLUME 90.6 fl (80.0-105.0); MEAN CORPUSCULAR HGB CONC 32.1 g/dl (31.0-37.0); MEAN PLATELET VOLUME 9.8 fl (7.0-11.0); MONO % 18.3 % (1.0-6.0); RBC 4.34 10^6/uL (3.5-6.1); RED CELL DISTRIBUTION WIDTH 13.8 % (11.5-14.5); WHITE BLOOD COUNT 5.5 10^3/uL (4.5-11.0)
[2018-07-23 07:03] LABS: ALB/GLOB RATIO 1.2 (1.1-1.8); ALBUMIN 4.1 g/dL (3.0-4.8); ALT/SGPT 22 U/L (7-56); AST/SGOT 29 U/L (14-36); BLOOD UREA NITROGEN 10 mg/dL (7-21); CALCIUM 9.2 mg/dL (8.4-10.5); GFR NON-AFRICAN AMERICAN > 60
--- NOTE | 2018-07-23 17:18 | CP.PCM.PN ---
<JoseAnton - Last Filed: 07/23/18 17:29> Subjective - Date & Time of Evaluation Date of Evaluation: 07/23/18 Time of Evaluation: 06:25 - Subjective Subjective: Pt seen, examined this morning at bedside, pt denies chest pain, SOB. Per Nursing, PTT was 177.9, heparin was held for 1 hour, PTT 117.7 heparin was held for 1 hour Objective - Vital Signs/Intake and Output Vital Signs (last 24 hours): Temp Pulse Resp BP Pulse Ox 97.9 F 76 18 102/69 99 07/23/18 08:00 07/23/18 10:00 07/23/18 08:00 07/23/18 08:00 07/23/18 08:00 Intake and Output: 07/23/18 07/23/18 06:59 18:59 Intake Total 847 Balance 847 - Medications Medications: Current Medications Heparin Sodium/Sodium Chloride (Heparin 00841 Units/250ml 1/2 Normal Saline) 25,000 units in 250 mls @ 11.202 mls/hr IV .[id number] PRN; Protocol PRN Reason: ADJUST RATE PER PROTOCOL Last Titration: 07/23/18 12:59 Dose: 12 units/kg/hr, 7.468 mls/hr - Labs Labs: 07/23/18 06:30 07/23/18 06:30 PT 13.0 SECONDS (9.4-12.5) H 07/22/18 19:21 INR 1.17 07/22/18 19:21 APTT 117.7 Seconds (26.9-38.3) H* 07/23/18 10:40 - Constitutional Appears: No Acute Distress - Head Exam Head Exam: ATRAUMATIC, NORMOCEPHALIC - Eye Exam Eye Exam: EOMI - ENT Exam ENT Exam: Mucous Membranes Moist - Neck Exam Neck Exam: Full ROM - Respiratory Exam Respiratory Exam: Clear to Ausculation Bilateral, NORMAL BREATHING PATTERN. absent: Accessory Muscle Use - Cardiovascular Exam Cardiovascular Exam: Tachycardia, REGULAR RHYTHM, +S1, +S2. absent: Diastolic murmur, Murmur - GI/Abdominal Exam GI & Abdominal Exam: Soft, Normal Bowel Sounds. absent: Tenderness - Extremities Exam Extremities Exam: Full ROM. absent: Calf Tenderness, Pedal Edema - Neurological Exam Neurological Exam: Alert, Awake, Oriented x3 - Psychiatric Exam Psychiatric exam: Normal Affect, Normal Mood - Skin Skin Exam: Dry, Intact, Warm Assessment and Plan - Assessment and Plan (Free Text) Assessment: Pt is a 38yo female with no significant PMH presents to the emergency department complaining of generalized weakness, and hunger which started last Monday. She states she has not eaten all day, last time she ate was last night. Pt states she presented to the [facility] on 07/19/18 for similar symptoms. Plan: Provoked Pulmonary Embolism - continue therapeutic heparin drip - PT 13, INR 1.17, PTT 117.7, D Dimer 1336 - will transition pt from heparin to eliquis - CXR shows no active disease - Head CT: no acute intracranial abnormality - Chest CT: evidence of pulmonary emboli within the distal left lower lobe pu lmonary artery, proximal segment and possibly additional subsegmental left lower lobe branch. - LE duplex no sonographic evidence of DVT - ECHO completed, waiting for read - pt counseled to stop taking OCP, as this may have increased her risk of having a pulmonary embolism - pt advised to follow up with a traffic representative as an out pt - Heme consulted Ppx, diet - regular diet Pt seen, examined, assessment and plan discussed with Dr Emily Garcia PGY1, Internal Medicine Resident <Tea Diaz - Last Filed: 07/24/18 15:51> Objective - Vital Signs/Intake and Output Vital Signs (last 24 hours): Temp Pulse Resp BP Pulse Ox 97.1 F L 82 21 115/73 98 07/24/18 12:00 07/24/18 12:00 07/24/18 12:00 07/24/18 12:00 07/24/18 00:01 Intake and Output: 07/24/18 07/24/18 06:59 18:59 Intake Total 480 Output Total 2 Balance 478 - Medications Medications: Current Medications Apixaban (Eliquis) 10 mg PO BID JUDY; Protocol Last Admin: 07/24/18 09:32 Dose: Not Given - Labs Labs: 07/24/18 07:00 07/24/18 07:00 PT 13.0 SECONDS (9.4-12.5) H 07/22/18 19:21 INR 1.17 07/22/18 19:21 APTT 78.6 Seconds (26.9-38.3) H 07/24/18 07:00 Attending/Attestation - Attestation I have personally seen and examined this patient.: Yes I have fully participated in the care of the patient.: Yes I have reviewed all pertinent clinical information, including history, physical exam and plan: Yes Notes (Text): 07/24/18 15:48 Attending note; Patient seen and examined with resident. Patient is alert and awake. Complaining of mild dizziness. Denies any chest pain. Complaining of shortness of breath on exertion. Tolerating diet. Patient is a 38-year-old female with no significant past medical history that presented to the emergency room complaining of generalized weakness and dizziness. 1. Pulmonary emboli. Likely secondary to oral contraceptive pill use. Patient advised to stop using her OCPs. CTA chest showed evidence of pulmonary emboli within the distal left lower lobe pulmonary artery, proximal segmental and possibly additional subsegmental left lower lobe branch, questionable pulmonary embolism within the distal segmental branch right upper lobe. currently on heparin drip. Risks including increased risk of bleeding discussed at length with patient. Patient understands the risks of blood thinners and agrees to take them. Patient understands that if she plans to be in the future, she will need to speak to her physician prior as she is on blood thinners. Bilateral lower extremity venous Doppler is negative. Echocardiogram pending. 2. Dizziness and weakness. Likely secondary to pulmonary emboli. Head CT showed no intracranial hemorrhage. Continue oxygen. 3. Needs outpatient hypercoagulable workup. Oncology evaluation requested. Case discussed in detail with patient and patient's at bedside with oil field pumper. Upon discharge the patient will follow up with PMD Dr. Lima.
[2018-07-23 18:18] VITALS: O2SAT 98
--- NOTE | 2018-07-23 20:49 | CARD ---
APPROVED REPORT Date of service: 07/23/2018 EXAM: Two-dimensional and M-mode echocardiogram with Doppler and color Doppler. INDICATION Pulmonary Embolism 2D DIMENSIONS Left Atrium (2D)3.2 (1.6-4.0cm)IVSd0.9 (0.7-1.1cm) LVDd4.3 (3.9-5.9cm)PWd0.6 (0.7-1.1cm) LVDs3.0 (2.5-4.0cm)FS (%) 31.8 % LVEF (%)60.1 (>50%) M-Mode DIMENSIONS Aortic Root2.40 (2.2-3.7cm)Aortic Cusp Exc.1.50 (1.5-2.0cm) Aortic Valve AoV Peak Vcnzpxql831.0cm/Wenceslao Peak GR.7mmHg Mitral Valve MV E Wgyjfrsh88.0cm/sMV A Qvukbhir79.7cm/sE/A ratio0.9 TDI E/Lateral E'0.0E/Medial E'0.0 Tricuspid Valve TR Peak [id number]/sRAP [id number] Peak Gr.21mmHg [id number] LEFT VENTRICLE The left ventricle is normal size. There is normal left ventricular wall thickness. The left ventricular function is normal. The left ventricular ejection fraction is within the normal range. There is normal LV segmental wall motion. Transmitral Doppler flow pattern is Grade I-abnormal relaxation pattern. RIGHT VENTRICLE The right ventricle is normal size. There is normal right ventricular wall thickness. The right ventricular systolic function is normal. ATRIA The left atrium size is normal. The right atrium size is normal. There is a thrombus suspected in the right atrium. AORTIC VALVE The aortic valve is normal in structure. No aortic regurgitation is present. There is no aortic valvular stenosis. MITRAL VALVE The mitral valve is normal in structure. There is no mitral valve regurgitation noted. There is no mitral valve stenosis. TRICUSPID VALVE There is mild tricuspid regurgitation. PULMONIC VALVE The pulmonary valve is normal in structure. There is no pulmonic valvular regurgitation. GREAT VESSELS The aortic root is normal in size. The IVC is normal in size and collapses >50% with inspiration. PERICARDIAL EFFUSION There is no pericardial effusion. <Conclusion> There is normal left ventricular wall thickness. The left ventricular function is normal. The left ventricular ejection fraction is within the normal range. There is normal LV segmental wall motion. Transmitral Doppler flow pattern is Grade I-abnormal relaxation pattern. The right ventricle is normal size. The right ventricular systolic function is normal. There is a thrombus suspected in the right atrium.
[2018-07-24 07:32] LABS: BASO # 0.03 K/mm3 (0.0-2.0); BASO % 0.7 % (0.0-3.0); EOS # 0.1 (0.0-0.7); EOS % 2.1 % (1.5-5.0); HEMOGLOBIN 12.9 g/dL (12.0-16.0); LYMPH # 1.7 (1.2-3.4); LYMPH % 38.4 % (22.0-35.0); MEAN CELL VOLUME 90.6 fl (80.0-105.0); MEAN CORPUSCULAR HEMOGLOBIN 28.7 pg (25.0-35.0); MEAN CORPUSCULAR HGB CONC 31.7 g/dl (31.0-37.0); MEAN PLATELET VOLUME 9.9 fl (7.0-11.0); MONO # 0.8 (0.1-0.6); MONO % 17.9 % (1.0-6.0); RBC 4.49 10^6/uL (3.5-6.1); RED CELL DISTRIBUTION WIDTH 13.8 % (11.5-14.5); WHITE BLOOD COUNT 4.3 10^3/uL (4.5-11.0)
[2018-07-24 07:59] LABS: ALB/GLOB RATIO 1.2 (1.1-1.8); ALBUMIN 4.3 g/dL (3.0-4.8); ALT/SGPT 22 U/L (7-56); AST/SGOT 34 U/L (14-36); BLOOD UREA NITROGEN 10 mg/dL (7-21); CALCIUM 9.5 mg/dL (8.4-10.5); GFR NON-AFRICAN AMERICAN > 60
[2018-07-24 13:02] VITALS: BP 115/73; PULSE 82; RESP 21; TEMP 97.1
--- NOTE | 2018-07-24 14:39 | CP.PCM.DIS ---
<Anton Garcia Leland - Last Filed: 07/24/18 14:40> Provider - Provider Date of Admission: 07/22/18 12:54 Attending physician: Tea Diaz MD Consults: 07/23/18 07:56 Physician Consult Routine Comment: Consulting Provider: Aurora Aragon Consulting Physician: Aurora Aragon Reason for Consult: provoked PE 07/24/18 07:08 Consult [Physician Consult] Routine Comment: Consulting Provider: Roque Retana Consulting Physician: Roque Retana Reason for Consult: r atrial thrombus Time Spent in preparation of Discharge (in minutes): 40 Diagnosis - Discharge Diagnosis (1) Pulmonary embolism Status: Acute Priority: High Hospital Course - Lab Results Lab Results: Most Recent Lab Values WBC 4.3 10^3/uL (4.5-11.0) L D 07/24/18 07:00 RBC 4.49 10^6/uL (3.5-6.1) 07/24/18 07:00 Hgb 12.9 g/dL (12.0-16.0) 07/24/18 07:00 Hct 40.7 % (36.0-48.0) 07/24/18 07:00 MCV 90.6 fl (80.0-105.0) 07/24/18 07:00 MCH 28.7 pg (25.0-35.0) 07/24/18 07:00 MCHC 31.7 g/dl (31.0-37.0) 07/24/18 07:00 RDW 13.8 % (11.5-14.5) 07/24/18 07:00 Plt Count 298 10^3/uL (120.0-450.0) 07/24/18 07:00 MPV 9.9 fl (7.0-11.0) 07/24/18 07:00 Neut % (Auto) 40.9 % (50.0-68.0) L 07/24/18 07:00 Lymph % (Auto) 38.4 % (22.0-35.0) H 07/24/18 07:00 [place] % (Auto) 17.9 % (1.0-6.0) H 07/24/18 07:00 Eos % (Auto) 2.1 % (1.5-5.0) 07/24/18 07:00 Baso % (Auto) 0.7 % (0.0-3.0) 07/24/18 07:00 Lymph # (Auto) 1.7 (1.2-3.4) 07/24/18 07:00 [place] # (Auto) 0.8 (0.1-0.6) H 07/24/18 07:00 Eos # (Auto) 0.1 (0.0-0.7) 07/24/18 07:00 Baso # (Auto) 0.03 K/mm3 (0.0-2.0) 07/24/18 07:00 Absolute Neuts (auto) 1.76 (1.4-6.5) 07/24/18 07:00 PT 13.0 SECONDS (9.4-12.5) H 07/22/18 19:21 INR 1.17 07/22/18 19:21 APTT 78.6 Seconds (26.9-38.3) H 07/24/18 07:00 D-Dimer, Quantitative 1336 ng/mlDDU (0-243) H 07/22/18 09:55 Sodium 140 mmol/L (132-148) 07/24/18 07:00 Potassium 4.1 mmol/L (3.6-5.0) 07/24/18 07:00 Chloride 105 mmol/L (98-107) 07/24/18 07:00 Carbon Dioxide 26 mmol/L (21-33) 07/24/18 07:00 Anion Gap 14 (10-20) 07/24/18 07:00 BUN 10 mg/dL (7-21) 07/24/18 07:00 Creatinine 0.7 mg/dl (0.7-1.2) 07/24/18 07:00 Est GFR ( Amer) > 60 07/24/18 07:00 Est GFR (Non-Af Amer) > 60 07/24/18 07:00 Random Glucose 100 mg/dL (70-110) 07/24/18 07:00 Calcium 9.5 mg/dL (8.4-10.5) 07/24/18 07:00 Magnesium 2.1 mg/dL (1.7-2.2) 07/22/18 09:55 Total Bilirubin 0.3 mg/dL (0.2-1.3) 07/24/18 07:00 AST 34 U/L (14-36) 07/24/18 07:00 ALT 22 U/L (7-56) 07/24/18 07:00 Alkaline Phosphatase 60 U/L (38-126) 07/24/18 07:00 Lactate Dehydrogenase 334 U/L (333-699) 07/24/18 09:00 Total Creatine Kinase 26 U/L (35-230) L 07/22/18 09:55 Troponin I < 0.01 ng/mL 07/22/18 09:55 NT-Pro-B Natriuret Pep 33.7 pg/mL (0-450) 07/22/18 09:55 Total Protein 7.8 g/dL (5.8-8.3) 07/24/18 07:00 Albumin 4.3 g/dL (3.0-4.8) 07/24/18 07:00 Globulin 3.5 gm/dL 07/24/18 07:00 Albumin/Globulin Ratio 1.2 (1.1-1.8) 07/24/18 07:00 Carcinoembryonic Ag 0.5 ng/mL (0.0-3.0) 07/24/18 09:00 Free T4 0.97 ng/dL (0.78-2.19) 07/22/18 09:55 TSH 3rd Generation 1.24 mIU/mL (0.46-4.68) 07/22/18 09:55 Beta HCG, Quant < 2.39 mIU/mL (0-6.15) 07/24/18 09:00 Urine Color Yellow (YELLOW) 07/22/18 10:30 Urine Appearance Clear (CLEAR) 07/22/18 10:30 Urine pH 6.5 (4.7-8.0) 07/22/18 10:30 Ur Specific [place] <= 1.005 (1.005-1.035) 07/22/18 10:30 Urine Protein Negative mg/dL (<30 mg/dL) 07/22/18 10:30 Urine Glucose (UA) Negative mg/dL (NEGATIVE) 07/22/18 10:30 Urine Ketones Negative mg/dL (NEGATIVE) 07/22/18 10:30 Urine Blood Negative (NEGATIVE) 07/22/18 10:30 Urine Nitrate Negative (NEGATIVE) 07/22/18 10:30 Urine Bilirubin Negative (NEGATIVE) 07/22/18 10:30 Urine Urobilinogen 0.2 E.U./dL (<1 E.U./dL) 07/22/18 10:30 Ur Leukocyte Esterase Negative Nabor/uL (NEGATIVE) 07/22/18 10:30 - Hospital Course Hospital Course: Hospitalization Pt is a 38 yo female with no significant PMH presents to the emergency department complaining of generalized weakness, and hunger which started last Monday. She denies a personal or family history of coagulation problems. Pt reports some mild associated SOB with the weakness. She states she has not eaten all day, last time she ate was last night. Pt states she presented to the [facility] ED on 07/19/18 for similiar symptoms. Pt states she has been taking OCP for the past 5 years. Discharge Seen in the hospital for SOB and weakness. Found to have a PE and treated with therapeutic heparin. Follow up with your primary physician (Dr. Lima) within 1 week of discharge. Follow up with the blood specialist (Dr. Aragon/Dr. Reveles) within 1-2 weeks of discharge. Started on a blood thinner, Eliquis. Take six more days of 10mg, 2 times per day, and then 5mg twice per day for at least 3 months. Given a script for a 1 month supply, please follow up with your primary doctor for further refills. Stop taking oral contraceptive pills. DO NOT start taking them again while on the blood thinner. DO NOT take any more contraceptives without first discussing and getting approval from your primary doctor. If you fall and hit your head while you are taking a blood thinner, you must go to your doctor or to the emergency department to get a scan of your head to make sure you aren't bleeding in your head. - Date & Time of H&P Date of H&P: 07/24/18 Time of H&P: 06:00 Discharge Exam - Head Exam Head Exam: ATRAUMATIC, NORMOCEPHALIC - Eye Exam Eye Exam: EOMI - ENT Exam ENT Exam: Mucous Membranes Moist - Neck Exam Neck exam: Full Rom - Respiratory Exam Respiratory Exam: NORMAL BREATHING PATTERN, UNREMARKABLE. absent: Accessory Muscle Use, Respiratory Distress - Cardiovascular Exam Cardiovascular Exam: RRR, +S1, +S2. absent: Diastolic murmur, Systolic Murmur - GI/Abdominal Exam GI & Abdominal Exam: Normal Bowel Sounds, Unremarkable - Extremities Exam Extremities exam: full ROM, pedal pulses present - Neurological Exam Neurological exam: Alert, Oriented x3 - Psychiatric Exam Psychiatric exam: Normal Affect, Normal Mood - Skin Skin Exam: Dry, Warm Discharge Plan - Discharge Medications Prescriptions: Apixaban [Eliquis] 5 mg PO BID 30 Days #60 tab Apixaban [Eliquis] 10 mg PO BID 6 Days #12 tablet - Follow Up Plan Condition: GUARDED Disposition: HOME/ ROUTINE Instructions: Pulmonary Embolism (Blood Clot in the Lungs) (DC), Going Home on Blood Thinners Additional Instructions: You were seen in the hospital for your shortness of breath and weakness. You were found to have a blood clot in your lungs. Please follow up with your primary physician (Dr. Lima) within 1 week of discharge. Please bring all papers given to you from the hospital when you see your doctor. Please follow up with the blood specialist (Dr. Aragon/Dr. Reveles) within 1- 2 weeks of discharge. You have been started on a blood thinner, Eliquis. You need to take six more days of 10mg, 2 times per day, and then 5mg twice per day for at least 3 months. You have been given a script for a 1 month supply, please follow up with your primary doctor for further refills. Please stop taking oral contraceptive pills. DO NOT start taking them again while on the blood thinner. DO NOT take any more contraceptives without first discussing and getting approval from your primary doctor. If you fall and hit your head while you are taking a blood thinner, you must go to your doctor or to the emergency department to get a scan of your head to make sure you aren't bleeding in your head. If you experience new concerning or worsening symptoms, please report to the the [facility] Emergency Department. Usted fue atendido en el hospital por acevedo falta de aliento y debilidad. Se encontr que tiffanie un cogulo de soheila en los pulmones. Por favor, paul un seguimiento con acevedo mdico primario (Dr. Lima) dentro de la primera semana del sylvia. Cuando milton a acevedo mdico, traiga todos los documentos que le entreg el hospital. Por favor paul un seguimiento con el especialista en soheila (Dr. Aragon / Dr. Reveles) dentro de 1-2 semanas despus del sylvia. Has comenzado con un anticoagulante, Eliquis. Debe boo seis singh ms de 10 mg, 2 veces al da y luego 5 mg dos veces al da betzy al menos 3 meses. Se le ritchie entregado un nubia para un suministro de 1 mes, consulte a acevedo mdico de cabecera para obtener resurtidos adicionales. Por favor, deje de boo pldoras anticonceptivas orales. NO comience a tomarlos nuevamente mientras est en el anticoagulante. NO tome ms anticonceptivos sin antes discutir y obtener la aprobacin de acevedo mdico de efrem. Si se y se golpea la jhon mientras keri un anticoagulante, debe acudir a acevedo mdico o al servicio de urgencias para que le realicen un examen de la jhon para asegurarse de que no est sangrando. Si experimenta sntomas nuevos o que empeoran, informe al [facility] ms jordyn. Referrals: Aurora Aragon MD [Staff Provider] - Emmanuelle Lima DO [Family Provider] - <Tea Diaz - Last Filed: 07/24/18 15:54> Provider - Provider Date of Admission: 07/22/18 12:54 Attending physician: Tea Diaz MD Consults: 07/23/18 07:56 Physician Consult Routine Comment: Consulting Provider: Aurora Aragon Consulting Physician: Aurora Aragon Reason for Consult: provoked PE 07/24/18 07:08 Consult [Physician Consult] Routine Comment: Consulting Provider: Roque Retana Consulting Physician: Roque Retana Reason for Consult: r atrial thrombus Hospital Course - Lab Results Lab Results: Most Recent Lab Values WBC 4.3 10^3/uL (4.5-11.0) L D 07/24/18 07:00 RBC 4.49 10^6/uL (3.5-6.1) 07/24/18 07:00 Hgb 12.9 g/dL (12.0-16.0) 07/24/18 07:00 Hct 40.7 % (36.0-48.0) 07/24/18 07:00 MCV 90.6 fl (80.0-105.0) 07/24/18 07:00 MCH 28.7 pg (25.0-35.0) 07/24/18 07:00 MCHC 31.7 g/dl (31.0-37.0) 07/24/18 07:00 RDW 13.8 % (11.5-14.5) 07/24/18 07:00 Plt Count 298 10^3/uL (120.0-450.0) 07/24/18 07:00 MPV 9.9 fl (7.0-11.0) 07/24/18 07:00 Neut % (Auto) 40.9 % (50.0-68.0) L 07/24/18 07:00 Lymph % (Auto) 38.4 % (22.0-35.0) H 07/24/18 07:00 [place] % (Auto) 17.9 % (1.0-6.0) H 07/24/18 07:00 Eos % (Auto) 2.1 % (1.5-5.0) 07/24/18 07:00 Baso % (Auto) 0.7 % (0.0-3.0) 07/24/18 07:00 Lymph # (Auto) 1.7 (1.2-3.4) 07/24/18 07:00 [place] # (Auto) 0.8 (0.1-0.6) H 07/24/18 07:00 Eos # (Auto) 0.1 (0.0-0.7) 07/24/18 07:00 Baso # (Auto) 0.03 K/mm3 (0.0-2.0) 07/24/18 07:00 Absolute Neuts (auto) 1.76 (1.4-6.5) 07/24/18 07:00 PT 13.0 SECONDS (9.4-12.5) H 07/22/18 19:21 INR 1.17 07/22/18 19:21 APTT 78.6 Seconds (26.9-38.3) H 07/24/18 07:00 D-Dimer, Quantitative 1336 ng/mlDDU (0-243) H 07/22/18 09:55 Sodium 140 mmol/L (132-148) 07/24/18 07:00 Potassium 4.1 mmol/L (3.6-5.0) 07/24/18 07:00 Chloride 105 mmol/L (98-107) 07/24/18 07:00 Carbon Dioxide 26 mmol/L (21-33) 07/24/18 07:00 Anion Gap 14 (10-20) 07/24/18 07:00 BUN 10 mg/dL (7-21) 07/24/18 07:00 Creatinine 0.7 mg/dl (0.7-1.2) 07/24/18 07:00 Est GFR ( Amer) > 60 07/24/18 07:00 Est GFR (Non-Af Amer) > 60 07/24/18 07:00 Random Glucose 100 mg/dL (70-110) 07/24/18 07:00 Calcium 9.5 mg/dL (8.4-10.5) 07/24/18 07:00 Magnesium 2.1 mg/dL (1.7-2.2) 07/22/18 09:55 Total Bilirubin 0.3 mg/dL (0.2-1.3) 07/24/18 07:00 AST 34 U/L (14-36) 07/24/18 07:00 ALT 22 U/L (7-56) 07/24/18 07:00 Alkaline Phosphatase 60 U/L (38-126) 07/24/18 07:00 Lactate Dehydrogenase 334 U/L (333-699) 07/24/18 09:00 Total Creatine Kinase 26 U/L (35-230) L 07/22/18 09:55 Troponin I < 0.01 ng/mL 07/22/18 09:55 NT-Pro-B Natriuret Pep 33.7 pg/mL (0-450) 07/22/18 09:55 Total Protein 7.8 g/dL (5.8-8.3) 07/24/18 07:00 Albumin 4.3 g/dL (3.0-4.8) 07/24/18 07:00 Globulin 3.5 gm/dL 07/24/18 07:00 Albumin/Globulin Ratio 1.2 (1.1-1.8) 07/24/18 07:00 Carcinoembryonic Ag 0.5 ng/mL (0.0-3.0) 07/24/18 09:00 Free T4 0.97 ng/dL (0.78-2.19) 07/22/18 09:55 TSH 3rd Generation 1.24 mIU/mL (0.46-4.68) 07/22/18 09:55 Beta HCG, Quant < 2.39 mIU/mL (0-6.15) 07/24/18 09:00 Urine Color Yellow (YELLOW) 07/22/18 10:30 Urine Appearance Clear (CLEAR) 07/22/18 10:30 Urine pH 6.5 (4.7-8.0) 07/22/18 10:30 Ur Specific [place] <= 1.005 (1.005-1.035) 07/22/18 10:30 Urine Protein Negative mg/dL (<30 mg/dL) 07/22/18 10:30 Urine Glucose (UA) Negative mg/dL (NEGATIVE) 07/22/18 10:30 Urine Ketones Negative mg/dL (NEGATIVE) 07/22/18 10:30 Urine Blood Negative (NEGATIVE) 07/22/18 10:30 Urine Nitrate Negative (NEGATIVE) 07/22/18 10:30 Urine Bilirubin Negative (NEGATIVE) 07/22/18 10:30 Urine Urobilinogen 0.2 E.U./dL (<1 E.U./dL) 07/22/18 10:30 Ur Leukocyte Esterase Negative Nabor/uL (NEGATIVE) 07/22/18 10:30 Attending/Attestation - Attestation I have personally seen and examined this patient.: Yes I have fully participated in the care of the patient.: Yes I have reviewed all pertinent clinical information, including history, physical exam and plan: Yes Notes (Text): 07/24/18 15:51 Attending note; Patient seen and examined with resident. Patient is alert and awake. denies any dizziness. Patient ambulated with physical therapy without hypoxia. Denies any chest pain. Complaining of shortness of breath on exertion. Tolerating diet. Patient is a 38-year-old female with no significant past medical history that presented to the emergency room complaining of generalized weakness and dizziness. 1. Pulmonary emboli. Likely secondary to oral contraceptive pill use. Patient advised to stop using her OCPs. CTA chest showed evidence of pulmonary emboli within the distal left lower lobe pulmonary artery, proximal segmental and possibly additional subsegmental left lower lobe branch, questionable pulmonary embolism within the distal segmental branch right upper lobe. Treated with IV heparin drip. Currently started on eliquis. Medication delivered to the bedside. Risks including increased risk of bleeding discussed at length with patient. Patient understands the risks of blood thinners and agrees to take them. Patient understands that if she plans to be in the future, she will need to speak to her physician prior as she is on blood thinners. Bilateral lower extremity venous Doppler is negative. Echocardiogram showed ejection fraction of 60% on suspected thrombus in the right atrium. Echocardiogram reviewed with draw tender Dr. Clemens in detail. Advised to continue anti-coagulation. 2. Dizziness and weakness. resolved. Head CT showed no intracranial hemorrhage. Continue oxygen. 3. Hematology evaluation appreciated. Hypercoagulable workup sent. Case discussed with PMD Dr. Lima in detail. The follow-up plan explained in detail. Advised to get blood work results from medical records. Patient will be referred to straightedge worker by PMD. Patient needs to continue eliquis. Case discussed in detail with patient and patient's at bedside with site director. Upon discharge the patient will follow up with PMMohsen Lima. 07/24/18 15:52
--- NOTE | 2018-07-24 19:36 | CON ---
DATE: 07/24/2018 HEMATOLOGY CONSULTATION HISTORY OF PRESENT ILLNESS: This is a 38-year-old woman who comes in with a pulmonary embolism. The patient was put on control pills recently. She has been feeling weak, tired. She went to the emergency room, was sent home, but now she comes back in with increasing weakness and they discovered pulmonary emboli and her CAT scan of legs were negative. PHYSICAL EXAMINATION: SKIN: No petechiae. No bruises. HEENT: Anicteric. Nodes nonpalpable in the axillary, cervical, and supraclavicular, or inguinal regions. LUNGS: Clear at present. No vertebral tenderness. BREAST: Shows no mass, discharge or dimpling. ABDOMEN: Shows no liver, no spleen, no tenderness. EXTREMITIES: Shows no edema. Rodriguez's sign is negative. Plantars are downgoing bilaterally. MEDICATIONS: She is on heparin. She is going to be switched to Eliquis. ASSESSMENT AND PLAN: I told her that she has to take the Eliquis for nine months total. For pulmonary embolism, her general doctor is Dr. Amador and I told her that I am ordering many different blood tests to see if she has a genetic cause for the blood clots, but in the meantime, she has to be off the oral contraceptives, try something different as well as be on the Eliquis. She will be following up with Dr. Amador for this. Neymar Reveles MD
--- NOTE | 2018-07-25 02:13 | CON ---
DATE: 07/24/2018 REQUESTING PHYSICIAN: Tea Diaz MD REASON FOR CONSULTATION: Possible right atrial thrombus. HISTORY OF PRESENT ILLNESS: This is a 38-year-old woman who presented to the emergency room complaining of generalized weakness and poor appetite. She had recent lightheadedness. She was seen in the emergency room several days ago and given Antivert. She presented for recurrent symptoms. Blood work revealed a D-dimer of 1336. CT angiogram was performed which showed evidence of distal left lower lobe pulmonary emboli as well as possible emboli in the left lower lobe branch as well. An echocardiogram was performed. This revealed no evidence of right heart strain. Left circular function was normal. Thrombus could not be excluded in the right atrium. Further evaluation was requested. She has been on oral contraceptives for the past 5 years. PAST MEDICAL HISTORY: Notable for two sections. MEDICATIONS AT HOME: Oral contraceptives only. ALLERGIES: NONE. SOCIAL HISTORY: She does not smoke or drink. FAMILY HISTORY: Both parents are alive and in good health. There is no history of premature heart disease or sudden . REVIEW OF SYSTEMS: A 10-point review of system is otherwise unremarkable. There is no history of prior thromboembolic events. PHYSICAL EXAMINATION: GENERAL: She is a fairly healthy appearing middle aged woman. VITAL SIGNS: Her blood pressure is 112/70 with a pulse of 86 and sinus, respirations of 16. She is afebrile. HEENT: Normocephalic and atraumatic. NECK: Supple. No JVD noted. CHEST: Clear to auscultation and percussion. HEART: PMI in normal position. No pathological murmurs or gallops noted. ABDOMEN: Soft and nontender. Normoactive bowel sounds. EXTREMITIES: No clubbing, cyanosis, edema. SKIN: Warm and dry. PSYCHIATRIC: Normal mood and affect. NEUROLOGIC: Alert and oriented x3 with no gross motor or sensory deficits noted. DIAGNOSTIC DATA: Potassium is 4.1, BUN and creatinine 10 and 0.7. White count is 4.3, hemoglobin and hematocrit 12.9 and 40.7 with platelet count 298,000. PTT is 78.6 on IV heparin. Chest x-ray reveals normal cardiac silhouette with clear lung nicolas. Electrocardiogram shows sinus rhythm with no abnormalities noted. Lower extremity venous Duplex shows no evidence of DVT. Echocardiogram was reviewed and there does not appear to be a clear thrombus in the right atrium. The visualized segment appears to be mild thickening of the tricuspid and tricuspid valve annulus. IMPRESSION: Apparent pulmonary emboli possibly related to oral contraceptive use and hypercoagulable workup is in progress. RECOMMENDATIONS. I agree with current management at this time. Avoidance of oral contraceptive use is advised. Oral Eliquis therapy has been initiated will be continued for 6 months given her pulmonary embolus. We will be happy to see her in the future as needed. Roque Retana MD [facility] # [id number] MTDD
== END 2018-07-24 15:55 | disposition home or self-care (01) | DRG 78 ==
LOC: ED 08:59 → MERGE 12:54 → ERH 12:54 → 2RNO 07-23 17:38
PROVIDERS: ADMIT Internal Medicine; ATTEND Internal Medicine
DX: I26.99 Other pulmonary embolism without acute cor pulmonale (principal); R42 Dizziness and giddiness; R53.1 Weakness; Z98.891 History of uterine scar from previous surgery

== ENCOUNTER 2018-08-06 22:49 | Emergency (ER) | payer MEDICAID ==
[2018-08-06 22:49] VITALS: BMI 25.0
[2018-08-07 00:34] VITALS: TEMP 98.5; O2SAT 100
--- NOTE | 2018-08-07 01:08 | ED PDOC ---
Arrival/HPI - General Chief Complaint: Lower Extremity Problem/Injury Time Seen by Provider: 08/06/18 23:34 Historian: Patient - History of Present Illness Narrative History of Present Illness (Text): 08/07/18 01:04 38 yo F presents to the emergency room complaining of her knees feeling weak, shaky and anxious tonight while she was trying to sleep. Patient states that she was recently here in this hospital earlier this month and was admitted and diagnosed for a PE. 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 Otherwise she reports no chest pain, shortness of breath, dyspnea, fever, nausea, vomiting, leg pain or swelling, numbness, decrease in range of motion, headache, dizziness, syncope. Past Medical History - Infectious Disease Hx of Infectious Diseases: None - Reproductive Currently : No - Past Medical History Past Medical History: Non-Contributing - Cardiac Hx Cardiac Disorders: No - Pulmonary Hx Respiratory Disorders: No Hx Pulmonary Embolism: Yes - Neurological Hx Neurological Disorder: No - HEENT Hx HEENT Disorder: No - Renal Hx Renal Disorder: No - Endocrine/Metabolic Hx Endocrine Disorders: No - Hematological/Oncological Hx Blood Disorders: No - Integumentary Hx Dermatological Disorder: No - Musculoskeletal/Rheumatological Hx Musculoskeletal Disorders: No Hx Falls: No - Gastrointestinal Hx Gastrointestinal Disorders: No - Genitourinary/Gynecological Hx Genitourinary Disorders: No - Psychiatric Hx Psychophysiologic Disorder: No Hx Substance Use: No - Past Surgical History Past Surgical History: No Previous - Surgical History Hx Section: Yes - Anesthesia Hx Anesthesia: Yes Hx Anesthesia Reactions: No Hx Malignant Hyperthermia: No - Suicidal Assessment Feels Threatened In Home Enviroment: No Family/Social History Family/Social History: No Known Family HX Smoking Status: Never Smoked Hx Alcohol Use: Yes Hx Substance Use: No Allergies/Home Meds Allergies/Adverse Reactions: Allergies No Known Allergies Allergy (Verified 08/06/18 23:29) Review of Systems - Review of Systems Constitutional: absent: Fatigue, Fevers Respiratory: absent: SOB, Cough Cardiovascular: absent: Chest Pain, Palpitations Gastrointestinal: absent: Abdominal Pain, Nausea, Vomiting Musculoskeletal: absent: Arthralgias, Back Pain, Neck Pain, Joint Swelling, Myalgias Skin: absent: Rash, Pruritis, Skin Lesions Neurological: absent: Headache, Dizziness Physical Exam Vital Signs Temp Pulse Resp BP Pulse Ox 08/07/18 00:34 98.5 F 100 H 18 122/72 100 Temperature: Afebrile Blood Pressure: Normal Pulse: Regular Respiratory Rate: Normal Appearance: Positive for: Well-Appearing, Non-Toxic, Comfortable, Other (patient appears anxious) Pain Distress: None Mental Status: Positive for: Alert and Oriented X 3 - Systems Exam Head: Present: Atraumatic, Normocephalic Pupils: Present: PERRL Extroacular Muscles: Present: EOMI Conjunctiva: Present: Normal Mouth: Present: Moist Mucous Membranes Neck: Present: Normal Range of Motion Respiratory/Chest: Present: Clear to Auscultation, Good Air Exchange. No: Respiratory Distress, Accessory Muscle Use Cardiovascular: Present: Regular Rate and Rhythm, Normal S1, S2. No: Murmurs Abdomen: No: Tenderness, Distention, Peritoneal Signs Back: Present: Normal Inspection Upper Extremity: Present: Normal Inspection. No: Cyanosis, Edema Lower Extremity: Present: Normal Inspection, NORMAL PULSES, Normal ROM, Neurovascularly Intact, Capillary Refill < 2 s. No: Edema, Tenderness, Swelling, Erythema, Deformity, Temperature Abnormalties Neurological: Present: GCS=15, CN II-XII Intact, Speech Normal, Motor Func Grossly Intact, Normal Sensory Function Skin: Present: Warm, Dry, Normal Color. No: Rashes Psychiatric: Present: Alert, Oriented x 3, Normal Insight, Normal Concentration Medical Decision Making ED Course and Treatment: 08/07/18 01:06 US doppler of b/l LE ordered. Given xanax po. US doppler of b/l LE : no DVT as per US tech. On reevaluation, patient reports no chest pain, SOB, headache, dizziness. On exam, patient remains awake alert and oriented 3 in no acute distress. US results d/w the patient. Advised to follow up with primary care physician in 1-2 days without fail. Advised to continue taking eliquis. Return to the emergency room at any time for any new or worsening symptoms. Patient states she fully agrees with and understands discharge instructions. States that she agrees with the plan and disposition. Verbalized and repeated discharge instructions and plan. I have given the patient opportunity to ask any additional questions. - RAD Interpretation Radiology Orders: 08/06/18 23:35 DUPLEX LOWER EXTRM VEIN BILAT [US] Stat - Medication Orders Current Medication Orders: Discontinued Medications Alprazolam (Xanax) 0.25 mg PO STAT STA; Protocol Stop: 08/07/18 00:48 - PA / HOG SCALDER / Resident Statement / has reviewed & agrees with the documentation as recorded. Disposition/Present on Arrival - Present on Arrival Any Indicators Present on Arrival: No History of DVT/PE: No History of Uncontrolled Diabetes: No Urinary Catheter: No History of Decub. Ulcer: No History Surgical Site Infection Following: None - Disposition Have Diagnosis and Disposition been Completed?: Yes Diagnosis: Anxiety Disposition: HOME/ ROUTINE Disposition Time: 01:00 Patient Plan: Discharge Condition: STABLE Discharge Instructions (ExitCare): Anxiety, Adult (DC) Print Language: BELARUSIAN Additional Instructions: Thank you for letting us take care of you today. You were treated for anxiety. The emergency medical care you received today was directed at your acute symptoms. Return to the Emergency Department if your symptoms worsen, do not improve, or if you have any other problems. Please contact your doctor in 2 days for re-evaluation and follow up. Bring any paperwork you were given at discharge with you along with any medications you are taking to your follow up visit. Our treatment cannot replace ongoing medical care by a primary care provider (PCP) outside of the emergency department. Thank you for allowing the [facility] team to be part of your care today. If you had an US: A Radiologist will review the ED reading if any change in treatment is needed we will contact you. Referrals: Emmanuelle Lima DO [Primary Care Provider] - Follow up with primary Forms: [employer] ([place]i), WORK NOTE
[2018-08-07 02:02] VITALS: BP 118/67; PULSE 88; RESP 17
== END 2018-08-07 01:25 | disposition home or self-care (01) ==
LOC: ED 22:49
DX: F41.9 Anxiety disorder, unspecified (principal); Z86.711 Personal history of pulmonary embolism

== ENCOUNTER 2018-09-21 07:33 | Outpatient (CLI) | payer MEDICAID | END 2018-09-21 07:34 | disposition home or self-care (01) | LOC: RAD 07:33 ==